=== PATIENT | female | born 1955 | race Caucasian/White ===

== ENCOUNTER → 2020-09-25 | Outpatient (CLI) | payer MEDICARE, OTHER ==
[~2020-09-25] MED LIST: AMLODIPINE-ATO1 EAC1 PO; ASPIR 8181 MG PO; COLACE 100MG C100 MG PO; GLUCOPHAGE 500500 MG PO; IBUPROFEN600 MG PO; K-DUR TAB 20 M20 MEQ PO; LASIX40 MG PO; NORCO 5-325 TA1 EACH PO; OMEPRAZOLE20 MG PO
== END ==
LOC: EXRD 13:00
DX: M25.562 Pain in left knee (principal); R60.0 Localized edema; R60.9 Edema, unspecified; M17.12 Unilateral primary osteoarthritis, left knee
CPT/HCPCS: 71046; 73560; 93970

== ENCOUNTER → 2021-05-15 | Outpatient (CLI) | payer MEDICARE, OTHER | LOC: RAD 09:41 | DX: M54.50 Low back pain, unspecified (principal); M47.816 Spondylosis without myelopathy or radiculopathy, lumbar region | CPT/HCPCS: 72100 ==

== ENCOUNTER → 2021-10-02 | Outpatient (CLI) | payer MEDICARE | LOC: HEART 5 09-30 13:30 | DX: R60.0 Localized edema (principal) | CPT/HCPCS: 93970 ==

== ENCOUNTER 2021-11-05 09:07 | Emergency (ER) | payer MEDICARE ==
[~2021-11-05 09:07] MED LIST changes: -AMLODIPINE-ATO1 EAC1 PO; +AMLODIPINE-BEN1 EACH PO; -K-DUR TAB 20 M20 MEQ PO; +LASIX20 MG PO; -LASIX40 MG PO; +POTASSIUM CHLO20 ME2 PO
[2021-11-05 10:56] LABS: HEMOGLOBIN 14.3 gm/dl (12.3-15.3); RED BLOOD COUNT 4.99 M/UL (4.00-5.10); WHITE BLOOD COUNT 9.7 K/UL (4.5-11.0)
[2021-11-05 11:22] LABS: BUN/CREATININE RATIO 17 (0-10)
[2021-11-05] MEDS ORDERED: ONDANSETRON ODT4 MG SL (13:14)
[2021-11-05] MEDS ORDERED: MELOXICAM15 MG PO (13:14)
[2021-11-05] MEDS ORDERED: MACROBID 100 M100 MG PO (13:14)
== END 2021-11-05 14:00 | disposition home or self-care (01) ==
LOC: ER1 09:07
PROVIDERS: Physician Assistant
DX: R55 Syncope and collapse (principal); S39.012A Strain of muscle, fascia and tendon of lower back, initial encounter; S50.01XA Contusion of right elbow, initial encounter; M51.37 Other intervertebral disc degeneration, lumbosacral region; M54.32 Sciatica, left side; N39.0 Urinary tract infection, site not specified; E11.9 Type 2 diabetes mellitus without complications; I10 Essential (primary) hypertension; Z79.84 Long term (current) use of oral hypoglycemic drugs; Z79.82 Long term (current) use of aspirin; Z88.0 Allergy status to penicillin; Z88.1 Allergy status to other antibiotic agents; W19.XXXA Unspecified fall, initial encounter
CPT/HCPCS: 70450; 72131; 73080; 73502; 80053; 81001; 82550; 82553; 84484; 85025; 87086; 93005; 96374; 99285; J2405

== ENCOUNTER 2021-11-07 08:42 | Observation (INO) | payer MEDICARE ==
[~2021-11-07] VITALS: Ht 165.1 cm; Wt 88.9 kg
[~2021-11-07 08:42] MED LIST changes: +MACROBID 100 M100 MG PO; +MELOXICAM15 MG PO; +ONDANSETRON ODT4 MG SL
[2021-11-07 09:23] LABS: HEMOGLOBIN 14.3 gm/dl (12.3-15.3); RED BLOOD COUNT 4.95 M/UL (4.00-5.10)
[2021-11-07 09:59] LABS: BUN/CREATININE RATIO 19 (0-10)
[2021-11-07] MEDS ORDERED: ATORVASTATIN CA40 MG PO (14:10)
[2021-11-07] MEDS ORDERED: ONDANSETRON ODT4 MG PO (14:10)
[2021-11-07] MEDS ORDERED: DECARA1250 MCG PO (14:11)
[2021-11-07] MEDS ORDERED: TYLENOL325 MG PO (14:11)
[2021-11-08 06:35] LABS: HEMOGLOBIN 13.1 gm/dl (12.3-15.3); RED BLOOD COUNT 4.6 M/UL (4.00-5.10)
[2021-11-08 06:46] LABS: WHITE BLOOD COUNT 8.4 K/UL (4.5-11.0)
[2021-11-08 07:25] LABS: BUN/CREATININE RATIO 18 (0-10)
[2021-11-09 02:05] LABS: HEMOGLOBIN 12.6 gm/dl (12.3-15.3); RED BLOOD COUNT 4.31 M/UL (4.00-5.10); WHITE BLOOD COUNT 6.4 K/UL (4.5-11.0)
[2021-11-09 02:29] LABS: BUN/CREATININE RATIO 19 (0-10)
[2021-11-10 02:25] LABS: HEMOGLOBIN 12.3 gm/dl (12.3-15.3); RED BLOOD COUNT 4.35 M/UL (4.00-5.10); WHITE BLOOD COUNT 6.2 K/UL (4.5-11.0)
[2021-11-10 02:58] LABS: BUN/CREATININE RATIO 16 (0-10)
[2021-11-10] MEDS ORDERED: LEVOFLOXACIN500 MG PO (16:52)
== END 2021-11-10 18:44 | disposition home health service (06) ==
LOC: ER1 08:42 → M/S 12:01 → CDU 12:01 → M/S 12:01 → CDU 14:53 → M/S 15:29
PROVIDERS: Internal Medicine; Physician Assistant; Physician Assistant Medical; ADMIT Internal Medicine
DX: N30.00 Acute cystitis without hematuria (principal); R55 Syncope and collapse; T48.205A Adverse effect of unspecified drugs acting on muscles, initial encounter; M62.82 Rhabdomyolysis; E87.6 Hypokalemia; R74.01 Elevation of levels of liver transaminase levels; E11.9 Type 2 diabetes mellitus without complications; I10 Essential (primary) hypertension; E78.5 Hyperlipidemia, unspecified; G92.9 Unspecified toxic encephalopathy; G89.29 Other chronic pain; M54.9 Dorsalgia, unspecified; Z20.822 Contact with and (suspected) exposure to COVID-19; Z88.0 Allergy status to penicillin; Z88.1 Allergy status to other antibiotic agents; Z88.8 Allergy status to other drugs, medicaments and biological substances; Z86.16 Personal history of COVID-19; Z79.82 Long term (current) use of aspirin; Z79.84 Long term (current) use of oral hypoglycemic drugs; Z79.899 Other long term (current) drug therapy; W19.XXXA Unspecified fall, initial encounter; Y92.009 Unspecified place in unspecified non-institutional (private) residence as the place of occurrence of the external cause
CPT/HCPCS: ECHO; 0240U; 36415; 51701; 70450; 71045; 72125; 72131; 72192; 80053; 81001; 82140; 82550; 82553; 82962; 83605; 83735; 84484; 85025; 85027; 86140; 87040; 87086; 93306; 94640; 94760; 96374; 96375; 97116; 97116-GP-CQ; 97162; 97530-GP-CQ; 99285; G0378; J1885

== ENCOUNTER → 2021-11-15 | Outpatient (CLI) | payer MEDICARE ==
[~2021-11-15] MED LIST changes: +ATORVASTATIN CA40 MG PO; +DECARA1250 MCG PO; +LEVOFLOXACIN500 MG PO; +ONDANSETRON ODT4 MG PO; +TYLENOL325 MG PO
[2021-11-15 11:08] LABS: HEMOGLOBIN 14.1 gm/dl (12.3-15.3); WHITE BLOOD COUNT 8.2 K/UL (4.5-11.0)
[2021-11-15 11:41] LABS: BUN/CREATININE RATIO 15 (0-10)
== END ==
LOC: LAB 10:35
PROVIDERS: Internal Medicine
DX: A41.9 Sepsis, unspecified organism (principal)
CPT/HCPCS: 36415; 80053; 82550; 85025